=== PATIENT | male | born 1990 | race American Indian/Alaskan Native ===

== ENCOUNTER 2017-08-09 19:06 | Emergency (ER) | payer SELFPAY ==
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
[2017-08-09 20:26] LABS: PH,URINE 7.5 (4.7-8.0); URINE BILIRUBIN NEGATIVE (NEGATIVE); URINE BLOOD NEGATIVE (NEGATIVE); URINE GLUCOSE (UA) NEGATIVE (NEGATIVE); URINE KETONE NEGATIVE (NEGATIVE); URINE LEUKOCYTE ESTERASE NEGATIVE Leu/uL (NEGATIVE); URINE PROTEIN TRACE mg/dL (<30 mg/dL)
[2017-08-09 20:27] LABS: URINE APPEARANCE CLEAR (CLEAR); URINE COLOR YELLOW (YELLOW)
[2017-08-09 20:42] LABS: URINE AMORPHOUS SEDIMENT FEW; URINE BACTERIA MANY (NEG)
[2017-08-09 21:18] VITALS: BP 121/75; PULSE 82; RESP 16; TEMP 97.9; O2SAT 99
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
== END 2017-08-09 21:16 | disposition home or self-care (01) ==
LOC: ED 19:06
DX: N50.819 Testicular pain, unspecified (principal)